=== PATIENT | male | born 1960 | race Caucasian/White ===

== ENCOUNTER → 2017-03-31 | Outpatient (CLI) | payer OTHER ==
[~2017-03-31] MED LIST: ALBUAER9 INH; AMLO5TAB4 PO; ATOR10TA88 PO; ATROPINE SULFATE 0.1 MG/ML 5ML SYR ONE; DOBUTamine HCL 12.5 MG/ML 20 ML VIAL ONE; INDA1TAB3 PO; IPRASOL4 INH; METFTAB2 PO; METO50TA16 PO; METOPROLOL TARTRATE 1 MG/ML VIAL ONE; MONT1TAB3 PO; OMEG10007 PO; OMEP40CA PO; OXGN; SYMIN INH; TRIA1SPR2 NAE
--- NOTE | 2017-03-31 11:11 | DIAGNOSTIC IMAGING REPORT ---
CHEST 2 VIEWS ROUTINE CLINICAL HISTORY: CHEST Pressure, difficulty BREATHING, HTN, MORBID OBESITY COMPARISON STUDY: 03/11/2015 FINDINGS: The bones soft tissues and hemidiaphragms are normal. The cardiomediastinal silhouette is normal. The lungs are clear. The pulmonary vasculature is normal. IMPRESSION: Negative chest. Electronically signed by: Carlos Gilliam M.D. 03/31/2017 11:09 AM Dictated Date/Time: 03/31/2017 11:09 AM
--- NOTE | 2017-04-01 18:00 | DOBUTAMINE ECHO ---
*NOTICE TO RECEIVING REPUBLICAN AGENCY This information is strictly Confidential and protected under [place] law. [place] law prohibits you from making any further disclosure of this information unless further disclosure is expressly permitted by the written consent of the person to whom it pertains or is authorized by law. A general authorization for the release of medical or other information is not sufficient for this purpose. Hospital accepts no responsibility if the information is made available to any other person, INCLUDING THE PATIENT. Interpretation Summary * Name: TRACY LAND Study Date: 03/31/2017 11:11 AM BP: 111/67 mmHg * Patient Location: [facility] HR: 67 * : 1960 (M/d/yyyy) Gender: Male Height: 69 in * Age: 56 yrs Ethnicity: [place] Weight: 317 lb * Ordering Physician: Ayse Womack * Referring Physician: Ayse Womack PA-C * Performed By: Samantha Koenig RDCS * * Reason For Study: Dyspnea on exertion * BSA: 2.5 m2 * -- Conclusions -- * Left ventricular systolic function is normal. * Grade I diastolic dysfunction, (abnormal relaxation pattern). * Borderline aortic root dilatation. * Normal dobutamine stress echocardiogram without development of ischemia. Procedure Details * DOBUTAMINE ECHO, CPT#28111 * ECHO DOPPLER, CPT #95822 * ECHO COLOR FLOW, CPT #47926 * A contrast injection of Definity was performed to improve assessment of LV function. * Contrast was injected into an intravenous site in the right arm. * One vial of Definity ultrasound contrast was diluted in normal saline to a total volume of 10 ml. A total of '6' ml of solution was administered during imaging. * Lot # [id number] of Definity utilized for procedure. * Expiration date MAY 13. * The attending nurse who injected the contrast agent was Alyssa Sinclair RN. Left Ventricular Findings with Stress * Normal dobutamine stress echocardiogram without development of ischemia. Left Ventricle * The left ventricle is normal in size. * There is normal left ventricular wall thickness. * Ejection Fraction = 60-65%. * Left ventricular systolic function is normal. * Grade I diastolic dysfunction, (abnormal relaxation pattern). * The left ventricular wall motion is normal. Right Ventricle * The right ventricle is normal in size and function. Atria * The left atrial size is normal. * Right atrial size is normal. Mitral Valve * The mitral valve anatomy is normal. * Significant mitral regurgitation is absent. Tricuspid Valve * The tricuspid valve is not well visualized, but is grossly normal. * Significant tricuspid regurgitation is absent. Aortic Valve * The aortic valve is normal in structure and function. * No hemodynamically significant valvular aortic stenosis. * There is no significant aortic regurgitation. Great Vessels * Borderline aortic root dilatation. Pericardium * There is no pericardial effusion. Stress Parameters * Normal baseline electrocardiogram. * The stress ECG response was normal * The stress portion of this study was personally supervised by the undersigned interpreting physician. * Rest heart rate was '67' BPM. * Rest blood pressure was '111/67' * Maximum heart rate achieved was 150 bpm. * Maximum heart rate was 90 % of maximum age-predicted heart rate. * Maximum blood pressure was '145/69' * Maximum Dobutamine infusion rate was '30' mcg/kg/min. * Dobutamine infusion was terminated due to achieving target heart rate * A total of 5 mg of IV Metoprolol was administered to reverse Dobutamine-induced tachycardia. * The patient did not exhibit any symptoms during drug infusion. Left Ventricular Findings with Stress * Normal baseline EKG at baseline. No ischemic changes with dobutamine administration. Normal baseline echocardiogram with normal augmentation and no development of wall motion abnormalities with dobutamine. No symptoms reported. MMode 2D Measurements and Calculations IVSd 0.97 cm LVIDd 3.7 cm LVIDs 2.6 cm LVPWd 1.4 cm IVS/LVPW 0.69 FS 29.6 % EDV(Teich) 57.4 ml ESV(Teich) 24.4 ml EF(Teich) 57.4 % EDV(cubed) 49.9 ml ESV(cubed) 17.4 ml EF(cubed) 65.1 % LV mass(C)d 144.4 grams LV mass(C)dI 57.5 grams/m\S\2 SV(Teich) 33.0 ml SI(Teich) 13.1 ml/m\S\2 SV(cubed) 32.4 ml SI(cubed) 12.9 ml/m\S\2 Ao root diam 4.0 cm Ao root area 12.5 cm\S\2 ACS 2.3 cm LA dimension 2.6 cm asc Aorta Diam 3.7 cm LA/Ao 0.66 LVOT diam 2.0 cm LVOT area 3.3 cm\S\2 LVAd ap4 33.9 cm\S\2 LVLd ap4 8.1 cm EDV(MOD-sp4) 115.0 ml EDV(sp4-el) 121.0 ml LVAs ap4 18.7 cm\S\2 LVLs ap4 6.6 cm ESV(MOD-sp4) 42.8 ml ESV(sp4-el) 45.1 ml EF(MOD-sp4) 62.8 % EF(sp4-el) 62.7 % LVAd ap2 31.1 cm\S\2 LVLd ap2 7.5 cm EDV(MOD-sp2) 105.6 ml EDV(sp2-el) 109.4 ml LVAs ap2 16.5 cm\S\2 LVLs ap2 6.0 cm ESV(MOD-sp2) 36.2 ml ESV(sp2-el) 38.4 ml EF(MOD-sp2) 65.8 % EF(sp2-el) 64.9 % LVLd %diff -70 % EDV(MOD-bp) 107.4 ml LVLs %diff -9.74 % ESV(MOD-bp) 40.6 ml EF(MOD-bp) 62.2 % SV(MOD-sp4) 72.2 ml SI(MOD-sp4) 28.7 ml/m\S\2 SV(MOD-sp2) 69.5 ml SI(MOD-sp2) 27.7 ml/m\S\2 SV(MOD-bp) 66.8 ml SI(MOD-bp) 26.6 ml/m\S\2 SV(sp4-el) 75.8 ml SI(sp4-el) 30.2 ml/m\S\2 SV(sp2-el) 71.0 ml SI(sp2-el) 28.2 ml/m\S\2 Doppler Measurements and Calculations MV E max gemini 57.7 cm/sec MV A max gemini 66.0 cm/sec MV E/A 0.88 MV dec time 0.26 sec Ao V2 max 97.1 cm/sec Ao max PG 3.8 mmHg Ao max PG (full) 0.48 mmHg ANITA(V,A) 3.1 cm\S\2 ANITA(V,D) 3.1 cm\S\2 LV V1 max PG 3.3 mmHg LV V1 max 90.7 cm/sec PA V2 max 93.7 cm/sec PA max PG 3.5 mmHg PA acc slope 766.7 cm/sec\S\2 PA acc time 0.08 sec PA pr(Accel) 42.6 mmHg
== END | disposition home or self-care (01) ==
LOC: C.CPL 10:41
PROVIDERS: ATTEND Physician Assistant
DX: R06.89 Other abnormalities of breathing (principal); R07.89 Other chest pain; E66.01 Morbid (severe) obesity due to excess calories; I10 Essential (primary) hypertension

== ENCOUNTER 2020-06-11 19:11 | Observation (INO) ==
[2020-06-11 19:52] LABS: Basophils # (auto) 0.03 K/uL (0-0.2); Basophils % (auto) 0.4 %; Eosinophils # (auto) 0.12 K/uL (0-0.5); Eosinophils % (auto) 1.7 %; Hematocrit (blood only) 43.4 % (42-52); Hemoglobin 14.5 g/dL (14.0-18.0); Immature Granulocytes # (auto) 0.01 K/uL (0.00-0.02); Immature Granulocytes % (auto) 0.1 %; Lymphocytes # (auto) 1.97 K/uL (1.2-3.4); Lymphocytes % (auto) 27.7 %; Mean Corpuscular Hemoglobin 28.6 pg (25-34); Mean Corpuscular Hgb Conc 33.4 g/dL (32-36); Mean Corpuscular Volume 85.6 fL (80-100); Mean Platelet Volume 10.9 fL (7.4-10.4); Monocytes # (auto) 0.61 K/uL (0.11-0.59); Monocytes % (auto) 8.6 %; Neutrophils # (auto) 4.37 K/uL (1.4-6.5); Neutrophils % (auto) 61.5 %; Platelet Count 328 K/uL (130-400); RDW Coefficient of Variation 14.6 % (11.5-14.5); RDW Standard Deviation 45.8 fL (36.4-46.3); Red Blood Count 5.07 M/uL (4.7-6.1); White Blood Count 7.11 K/uL (4.8-10.8)
[2020-06-11] MEDS ORDERED: SODIUM CHLORIDE 0.9% 1000ML 1,000 ML IV ONE (20:13)
[2020-06-11] MEDS ORDERED: SODIUM CHLORIDE 0.9% 1000ML 1,000 ML IV SCH ×2 (20:15→23:34)
[2020-06-11 20:16] LABS: Albumin Globulin Ratio 0.8 (0.9-2); Albumin Level 3.4 gm/dl (3.4-5.0); BUN Creatinine Ratio 16.8 (10-20); Bilirubin,Total 0.6 mg/dl (0.2-1); Creatinine Clr Calc Pharmacy 63.8 ml/min; Est GFR (African American) 48.3; Est GFR (Non-African American) 41.7; Globulin 4.5 gm/dl (2.5-4.0); Potassium 4.9 mmol/L (3.5-5.1); Total Protein 7.9 gm/dl (6.4-8.2)
[2020-06-11] MEDS ORDERED: INSULIN PROTOCOL GOAL RANGE ONE (20:21)
[2020-06-11] MEDS ORDERED: SEVERE STRESS LEVEL ONE (20:21)
[2020-06-11 20:27] LABS: INR 1.2 (0.9-1.1); Prothrombin Time 12.2 Seconds (9.0-12.0)
[2020-06-11 20:33] LABS: Magnesium 2.2 mg/dl (1.8-2.4)
--- NOTE | 2020-06-11 20:47 | Emergency Department Note ---
Impression & Plan Hyperglycemia, Dehydration, Polyuria, Increased thirst ED Provider Note NAME: TRACY LAND AGE: 59 SEX: M : 1960 ARRIVES VIA: Walk-In INFORMANT: Patient, ED PROVIDER(S): Jim Mondragon MD Chief Complaint: Increasing thirst, dry mouth, increased urination HPI: She does present with the above complaints and ongoing ongoing for several days. The patient was concerned and thus presented here for evaluation. The patient denies any chest pains or shortness of breath. The patient states he has been compliant with his medications and does wear CPAP at home. Patient states that he was told that he is prediabetic and does see outpatient pulmonology. It has not had any recent change in diet but believes he has been losing weight given his increased thirst and urination. The patient does feels that his mouth is dry. Patient's symptoms have been constant and have not improved even with by mouth hydration. Patient denies any nausea or vomiting or diarrheal symptoms. ROS: See HPI for pertinent positives and negatives. A total of 10 systems were reviewed and otherwise negative. Past medical history: See below Surgical history: See below Social history: See below Physical Exam: GENERAL: Wearing a mask. NAD, non-toxic. EYE EXAM: Normal conjunctiva. PERRL, no anisocoria and EOM's grossly intact w/o pain. NECK: Supple, no nuchal rigidity, no adenopathy, non-tender. No signs of meningismus. LUNGS: Clear to auscultation. Normal chest wall mechanics. HEART: NSR, no MRG. ABDOMEN: Abdomen soft, non-tender, normo-active bowel sounds, no masses, no rebound or guarding. BACK: No CVA TTP. SKIN: No rashes and no bruising. UPPER EXTREMITIES: Upper extremities are grossly normal. LOWER EXTREMITIES: Grossly normal, no edema. NEURO EXAM: A&O x3, cranial nerves II-XII grossly intact, normal speech, moves all 4 extremities on command w/o issue. Differential diagnoses: Infection, dehydration, metabolic abnormality, hypo/hyperglycemia, electrolyte disturbance, anemia, hypoxia, cardiac sources, intracerebral event, toxicologic, neurologic, as well as other pathologies. Course: Patient was seen and evaluated the bedside. Full history physical exam was performed. EKG: None Imaging Studies: None Cardiac monitoring: An order was placed for continuous cardiac monitoring. The monitor shows a rate of 93 with sinus rhythm. MDM: Patient was seen due to concern for elevated blood sugar in triage as well as symptoms of increased urination and thirst and dry mouth. Blood work is ob tained and the patient does have an elevated blood glucose greater than 900. The patient does not have an anion gap or low bicarb. Patient is not in DKA. Patient was given IV fluids and insulin drip was ordered. Patient's potassium was within normal limits. As per the on-call hospitalist Dr. Garcia patient was subsequently mated medicine service. Critical Care: I have personally spent 37 minutes of critical care time in direct management of this patient. This includes bedside care, interpretation of diagnostic studies, and testing, discussion with consultants, patient, and family members, and other require inpatient management activities. This 37 minutes is in excess of all separately billable procedures. Past Med/Surg History Medical History Calculus of kidney Cough Opioid dependence with unspecified opioid-induced disorder Pneumonia, organism unspecified Pulmonary nodule 4mm rml Restrictive pattern present on pulmonary function testing Severe sleep apnea Social History Smoking Status: Never smoker Hx Alcohol Use: No Hx Substance Use: No Preferred Language: Pakistani Communication Ability: Effective Fence Post Driver Required: No Beliefs That Will Affect Care: None Current Living Situation Comment: children Other Information That Helps Us Care for You: No Feels Safe at Home: Yes Safety Concerns: Feels Safe At This Time Allergies Allergies Allergy/AdvReac Type Severity Reaction Status Date / Time Tetracyclines Allergy Intermediate RASH/HIVES Verified 06/11/20 21:01 Home Meds Home Medications Medication Instructions Recorded Confirmed amlodipine 5 mg tablet 5 mg PO DAILY 05/18/19 06/11/20 atorvastatin 40 mg tablet 40 mg PO DAILY 05/18/19 06/11/20 cetirizine 10 mg tablet 10 mg PO DAILY 05/18/19 06/11/20 lisinopril 40 mg tablet 40 mg PO DAILY 05/18/19 06/11/20 montelukast 10 mg tablet 10 mg PO QPM 05/18/19 06/11/20 omega-3 fatty acids 1,000 mg 1,000 mg PO DAILY 05/18/19 06/11/20 capsule omeprazole 40 mg capsule,delayed 40 mg PO DAILY 05/18/19 06/11/20 release metoprolol succinate 100 mg 50 mg PO DAILY tab 05/21/19 06/11/20 tablet,extended release 24 hr triamcinolone acetonide 55 mcg 1 sprays INTNAS DAILY 05/21/19 06/11/20 nasal spray aerosol indapamide 2.5 mg PO DAILY 06/11/20 06/11/20 Previous Rx's Medication Instructions Recorded ipratropium bromide 0.02 % 1.25 ml INH .COMPLEX #150 ml 05/18/19 solution for inhalation levalbuterol HCl 0.63 mg/3 mL 0.63 mg INH .COMPLEX #150 ml 05/18/19 solution for nebulization albuterol sulfate 90 mcg/actuation 2 puffs INH Q6H PRN #18 gm 06/29/19 aerosol inhaler budesonide-formoterol HFA 160 2 inh INH BID #10.2 g 05/07/20 mcg-4.5 mcg/actuation aerosol inhaler Results & Data (ED) Vital Signs Vital Signs - 24 hr 06/11/20 19:20 06/11/20 20:27 06/11/20 20:31 Temperature 36.5 C Temperature Source Oral Pulse Rate 110 H 99 H Pulse Rate from SpO2 Sensor 98 H Respiratory Rate 18 30 H Respiratory Effort / Characteristics Non-Labored Respiratory Depth Normal Blood Pressure 115/73 Blood Pressure Mean 87 Pulse Oximetry 93 98 92 Oxygen Delivery Method Room Air Room Air Sepsis Recent Fever Within 48 Hours No Sepsis New/Unexplained Change in Mental Status No Sepsis Action Taken by Nursing No Action Required 06/11/20 20:40 06/11/20 20:50 06/11/20 21:00 Temperature Temperature Source Pulse Rate 94 H 94 H 91 H Pulse Rate from SpO2 Sensor 94 H 96 H 91 H Respiratory Rate 21 23 22 Respiratory Effort / Characteristics Respiratory Depth Blood Pressure 147/82 H Blood Pressure Mean 100 Pulse Oximetry 93 95 95 Oxygen Delivery Method Sepsis Recent Fever Within 48 Hours Sepsis New/Unexplained Change in Mental Status Sepsis Action Taken by Nursing 06/11/20 21:10 06/11/20 21:20 Temperature Temperature Source Pulse Rate 103 H Pulse Rate from SpO2 Sensor 102 H 95 H Respiratory Rate 22 23 Respiratory Effort / Characteristics Respiratory Depth Blood Pressure Blood Pressure Mean Pulse Oximetry 95 95 Oxygen Delivery Method Sepsis Recent Fever Within 48 Hours Sepsis New/Unexplained Change in Mental Status Sepsis Action Taken by Half-Way Medications Current Medication List: was personally reviewed by me Laboratory Data Attestation: I reviewed the patient's lab results. Result diagrams: 06/11/20 19:37 06/12/20 11:45 Lab Results 06/11/20 06/11/20 06/11/20 Range/Units 19:24 19:26 19:37 WBC 7.11 (4.8-10.8) K/uL RBC 5.07 (4.7-6.1) M/uL Hgb 14.5 (14.0-18.0) g/dL Hct 43.4 (42-52) % MCV 85.6 (80-100) fL MCH 28.6 (25-34) pg MCHC 33.4 (32-36) g/dL RDW Std Deviation 45.8 (36.4-46.3) fL RDW Coeff of Jake 14.6 H (11.5-14.5) % Plt Count 328 (130-400) K/uL MPV 10.9 H (7.4-10.4) fL Immature Gran % (Auto) 0.1 % Neut % (Auto) 61.5 % Lymph % (Auto) 27.7 % [place] % (Auto) 8.6 % Eos % (Auto) 1.7 % Baso % (Auto) 0.4 % Neut # (Auto) 4.37 (1.4-6.5) K/uL Lymph # (Auto) 1.97 (1.2-3.4) K/uL [place] # (Auto) 0.61 H (0.11-0.59) K/uL Eos # (Auto) 0.12 (0-0.5) K/uL Baso # (Auto) 0.03 (0-0.2) K/uL Immature Gran # (Auto) 0.01 (0.00-0.02) K/uL PT (9.0-12.0) Seconds INR (0.9-1.1) Sodium (136-145) mmol/L Potassium (3.5-5.1) mmol/L Chloride (98-107) mmol/L Carbon Dioxide (21-32) mmol/L Anion Gap (3-11) BUN (7-18) mg/dl Creatinine (0.6-1.4) mg/dl Est Cr Clr Drug Dosing ml/min Est GFR ( Amer) Est GFR (Non-Af Amer) BUN/Creatinine Ratio (10-20) Glucose (70-99) mg/dl POC Glucose > 600 H* > 600 H* (70-99) mg/dl Calcium (8.5-10.1) mg/dl Magnesium (1.8-2.4) mg/dl Total Bilirubin (0.2-1) mg/dl AST (15-37) U/L ALT (12-78) U/L Alkaline Phosphatase (45-117) U/L Total Protein (6.4-8.2) gm/dl Albumin (3.4-5.0) gm/dl Globulin (2.5-4.0) gm/dl Albumin/Globulin Ratio (0.9-2) Beta-Hydroxybutyric Acd (0.2-2.81) mg/dl TSH (0.300-4.500) uIu/ml Specimen Hemolysis 06/11/20 06/11/20 06/11/20 Range/Units 19:37 19:37 19:37 WBC (4.8-10.8) K/uL RBC (4.7-6.1) M/uL Hgb (14.0-18.0) g/dL Hct (42-52) % MCV (80-100) fL MCH (25-34) pg MCHC (32-36) g/dL RDW Std Deviation (36.4-46.3) fL RDW Coeff of Jake (11.5-14.5) % Plt Count (130-400) K/uL MPV (7.4-10.4) fL Immature Gran % (Auto) % Neut % (Auto) % Lymph % (Auto) % [place] % (Auto) % Eos % (Auto) % Baso % (Auto) % Neut # (Auto) (1.4-6.5) K/uL Lymph # (Auto) (1.2-3.4) K/uL [place] # (Auto) (0.11-0.59) K/uL Eos # (Auto) (0-0.5) K/uL Baso # (Auto) (0-0.2) K/uL Immature Gran # (Auto) (0.00-0.02) K/uL PT 12.2 H (9.0-12.0) Seconds INR 1.2 H (0.9-1.1) Sodium 124 L (136-145) mmol/L Potassium 4.9 (3.5-5.1) mmol/L Chloride 90 L (98-107) mmol/L Carbon Dioxide 23 (21-32) mmol/L Anion Gap 11.0 (3-11) BUN 30 H (7-18) mg/dl Creatinine 1.77 H (0.6-1.4) mg/dl Est Cr Clr Drug Dosing 63.8 ml/min Est GFR ( Amer) 48.3 Est GFR (Non-Af Amer) 41.7 BUN/Creatinine Ratio 16.8 (10-20) Glucose 913 H* (70-99) mg/dl POC Glucose (70-99) mg/dl Calcium 9.0 (8.5-10.1) mg/dl Magnesium 2.2 Cancelled (1.8-2.4) mg/dl Total Bilirubin 0.6 (0.2-1) mg/dl AST 58 H (15-37) U/L ALT 70 (12-78) U/L Alkaline Phosphatase 191 H (45-117) U/L Total Protein 7.9 (6.4-8.2) gm/dl Albumin 3.4 (3.4-5.0) gm/dl Globulin 4.5 H (2.5-4.0) gm/dl Albumin/Globulin Ratio 0.8 L (0.9-2) Beta-Hydroxybutyric Acd (0.2-2.81) mg/dl TSH 0.858 Cancelled (0.300-4.500) uIu/ml Specimen Hemolysis 06/11/20 06/11/20 Range/Units 20:50 20:50 WBC (4.8-10.8) K/uL RBC (4.7-6.1) M/uL Hgb (14.0-18.0) g/dL Hct (42-52) % MCV (80-100) fL MCH (25-34) pg MCHC (32-36) g/dL RDW Std Deviation (36.4-46.3) fL RDW Coeff of Jake (11.5-14.5) % Plt Count (130-400) K/uL MPV (7.4-10.4) fL Immature Gran % (Auto) % Neut % (Auto) % Lymph % (Auto) % [place] % (Auto) % Eos % (Auto) % Baso % (Auto) % Neut # (Auto) (1.4-6.5) K/uL Lymph # (Auto) (1.2-3.4) K/uL [place] # (Auto) (0.11-0.59) K/uL Eos # (Auto) (0-0.5) K/uL Baso # (Auto) (0-0.2) K/uL Immature Gran # (Auto) (0.00-0.02) K/uL PT (9.0-12.0) Seconds INR (0.9-1.1) Sodium (136-145) mmol/L Potassium (3.5-5.1) mmol/L Chloride (98-107) mmol/L Carbon Dioxide (21-32) mmol/L Anion Gap (3-11) BUN (7-18) mg/dl Creatinine (0.6-1.4) mg/dl Est Cr Clr Drug Dosing ml/min Est GFR ( Amer) Est GFR (Non-Af Amer) BUN/Creatinine Ratio (10-20) Glucose 783 H* (70-99) mg/dl POC Glucose > 600 H* (70-99) mg/dl Calcium (8.5-10.1) mg/dl Magnesium (1.8-2.4) mg/dl Total Bilirubin (0.2-1) mg/dl AST (15-37) U/L ALT (12-78) U/L Alkaline Phosphatase (45-117) U/L Total Protein (6.4-8.2) gm/dl Albumin (3.4-5.0) gm/dl Globulin (2.5-4.0) gm/dl Albumin/Globulin Ratio (0.9-2) Beta-Hydroxybutyric Acd (0.2-2.81) mg/dl TSH (0.300-4.500) uIu/ml Specimen Hemolysis Administered Medications Amlodipine Besylate (Amlodipine Besylate 5 Mg Tab) 5 mg PO DAILY GEORGE Stop: 07/12/20 08:59 Last Admin: 06/12/20 07:50 Dose: 5 mg Documented by: [id number] Atorvastatin Calcium (Atorvastatin 40 Mg Tab) 40 mg PO DAILY [facility] Stop: 07/12/20 08:59 Last Admin: 06/12/20 07:45 Dose: 40 mg Documented by: [id number] Cetirizine HCl (Cetirizine Hcl 10 Mg Tablet) 10 mg PO DAILY GEORGE Stop: 07/12/20 08:59 Last Admin: 06/12/20 07:47 Dose: 10 mg Documented by: [id number] Enoxaparin Sodium (Enoxaparin Inj 40 Mg/0.4 Ml Syr) 40 mg SQ Q12H GEORGE Stop: 07/12/20 08:59 Last Admin: 06/12/20 07:45 Dose: 40 mg Documented by: [id number] Fluticasone/Vilanterol (Fluticasone/Vilanterol 100/25mcg 14 Puffs/Inhaler) 1 puffs INH DAILY GEORGE Stop: 07/12/20 08:59 Last Admin: 06/12/20 07:46 Dose: 1 puffs Documented by: [id number] Insulin Human Regular 250 (units/ Sodium Chloride) 250 mls @ 2.7 mls/hr IV .Q24H GEORGE; Protocol Stop: 07/11/20 20:29 Last Titration: 06/12/20 13:57 Dose: 2.7 units/hr, 2.7 mls/hr Documented by: [id number] Cosigned by: [id number] Titration: 06/12/20 12:26 Dose: 3.4 units/hr, 3.4 mls/hr Documented by: [id number] Cosigned by: [id number] Titration: 06/12/20 09:51 Dose: 4.3 units/hr, 4.3 mls/hr Documented by: [id number] Cosigned by: [id number] Titration: 06/12/20 09:02 Dose: 3.1 units/hr, 3.1 mls/hr Documented by: [id number] Cosigned by: [id number] Titration: 06/12/20 06:46 Dose: 2.6 units/hr, 2.6 mls/hr Documented by: [id number] Cosigned by: [id number] Titration: 06/12/20 04:55 Dose: 2.6 units/hr, 2.6 mls/hr Documented by: [id number] Cosigned by: [id number] Titration: 06/12/20 02:53 Dose: 2.6 units/hr, 2.6 mls/hr Documented by: [id number] Cosigned by: [id number] Titration: 06/12/20 01:50 Dose: 2.6 units/hr, 2.6 mls/hr Documented by: [id number] Cosigned by: [id number] Titration: 06/12/20 00:49 Dose: 3.3 units/hr, 3.3 mls/hr Documented by: [id number] Cosigned by: [id number] Titration: 06/11/20 23:48 Dose: 4.1 units/hr, 4.1 mls/hr Documented by: [id number] Cosigned by: [id number] Titration: 06/11/20 22:55 Dose: 4.1 units/hr, 4.1 mls/hr Documented by: [id number] Cosigned by: [id number] Admin: 06/11/20 21:39 Dose: 5.1 units/hr, 5.1 mls/hr Documented by: [id number] Cosigned by: [id number] Potassium Chloride/Sodium Chloride (1/2 Nss + 20meq Kcl 1000ml) 20 meq in 1,000 mls @ 150 mls/hr IV .Q6H40M [facility] Stop: 07/12/20 10:14 Last Admin: 06/12/20 10:22 Dose: 150 mls/hr Documented by: [id number] Indapamide (Indapamide 1.25 Mg Tab) 2.5 mg PO DAILY [facility] Stop: 07/12/20 08:59 Last Admin: 06/12/20 07:49 Dose: 2.5 mg Documented by: [id number] Insulin Aspart (Insulin Aspart 100 Units/Ml 3 Ml Pen) 0 units SC [facility]; Protocol Stop: 07/12/20 07:29 Last Admin: 06/12/20 12:01 Dose: 13 units Documented by: [id number] Cosigned by: [id number] Admin: 06/12/20 08:19 Dose: 5 units Documented by: [id number] Cosigned by: [id number] Lisinopril (Lisinopril 40 Mg Tab) 40 mg PO DAILY [facility] Stop: 07/12/20 08:59 Last Admin: 06/12/20 07:49 Dose: 40 mg Documented by: [id number] Metoprolol Succinate (Metoprolol Succ 50mg Ext Rel Tab) 50 mg PO DAILY GEORGE Stop: 07/12/20 08:59 Last Admin: 06/12/20 07:49 Dose: 50 mg Documented by: [id number] Pantoprazole Sodium (Pantoprazole 40 Mg Tab) 40 mg PO DAILY [facility] Stop: 07/12/20 08:59 Last Admin: 06/12/20 07:47 Dose: 40 mg Documented by: [id number] Triamcinolone Acetonide (Triamcinolone Acet Nasal [place] 10.8ml Btl) 1 sprays NA DAILY GEORGE Stop: 07/12/20 08:59 Last Admin: 06/12/20 07:46 Dose: 1 sprays Documented by: [id number] Discontinued Medications Sodium Chloride (Nss 1000ml) 1,000 mls @ 999 mls/hr IV .Q1H1M GEORGE Stop: 06/11/20 21:15 Last Infusion: 06/11/20 21:41 Dose: 0 mls/hr Documented by: [id number] Admin: 06/11/20 20:28 Dose: 999 mls/hr Documented by: [id number] Sodium Chloride (Nss 1000ml) 1,000 mls @ 999 mls/hr IV .Q1H1M ONE Stop: 06/11/20 21:13 Last Infusion: 06/11/20 22:51 Dose: 0 mls/hr Documented by: [id number] Admin: 06/11/20 21:16 Dose: 999 mls/hr Documented by: [id number] Sodium Chloride (Nss 1000ml) 1,000 mls @ 200 mls/hr IV .Q5H GEORGE Stop: 07/11/20 23:33 Last Admin: 06/12/20 01:04 Dose: Not Given Documented by: [id number] Potassium Chloride/Sodium Chloride (1/2 Nss + 20meq Kcl 1000ml) 20 meq in 1,000 mls @ 200 mls/hr IV .Q5H GEORGE Stop: 07/12/20 00:44 Last Infusion: 06/12/20 02:01 Dose: 0 mls/hr Documented by: [id number] Admin: 06/12/20 01:40 Dose: 200 mls/hr Documented by: [id number] Potassium Chloride/Dextrose/Sod Cl (D5w And 1/2nss + 20meq Kcl) 20 meq in 1,000 mls @ 150 mls/hr IV .Q6H40M [facility]ORGE Stop: 07/12/20 01:59 Last Infusion: 06/12/20 10:04 Dose: 0 mls/hr Documented by: [id number] Admin: 06/12/20 07:42 Dose: 150 mls/hr Documented by: [id number] Infusion: 06/12/20 07:42 Dose: 150 mls/hr Documented by: [id number] Infusion: 06/12/20 04:35 Dose: 150 mls/hr Documented by: [id number] Admin: 06/12/20 02:00 Dose: 200 mls/hr Documented by: [id number] Potassium Chloride (K [place] / Wtr) 10 meq in 100 mls @ 100 mls/hr IV Q1H [facility] Stop: 06/12/20 10:44 Last Infusion: 06/12/20 10:52 Dose: 0 mls/hr Documented by: [id number] Admin: 06/12/20 09:47 Dose: 100 mls/hr Documented by: [id number] Infusion: 06/12/20 09:47 Dose: 100 mls/hr Documented by: [id number] Admin: 06/12/20 08:55 Dose: 100 mls/hr Documented by: [id number] Insulin Aspart (Insulin Aspart 100 Units/Ml 3 Ml Pen) 0 units SC ACHS [facility] Stop: 07/11/20 20:59 Last Admin: 06/12/20 00:05 Dose: Not Given Documented by: [id number] Cosigned by: [id number] Insulin Glargine (Insulin Glargine Solostar 100 Units/Ml 3 Ml Pen) 50 units SC ONE ONE Stop: 06/12/20 10:31 Last Admin: 06/12/20 10:54 Dose: 50 units Documented by: [id number] Cosigned by: [id number] Insulin Human Regular (Novolin-R Bolus From Bag) 5 units IV ONE ONE Stop: 06/11/20 21:16 Last Admin: 06/11/20 21:39 Dose: 5 units Documented by: [id number] Cosigned by: [id number] Miscellaneous (Insulin Protocol Goal Range ) 1 ea N/A ONE ONE Stop: 06/11/20 20:22 Last Admin: 06/12/20 00:04 Dose: Not Given Documented by: [id number] Miscellaneous (Severe Stress Level ) 1 ea N/A ONE ONE Stop: 06/11/20 20:22 Last Admin: 06/12/20 00:05 Dose: Not Given Documented by: [id number] Miscellaneous (Pending 1/2nss+20meq Kcl Ivf) 1 ea N/A Q2H GEORGE Stop: 07/11/20 23:33 Last Admin: 06/12/20 01:04 Dose: Not Given Documented by: [id number] Miscellaneous (Pending D5 1/2ns+20meq Kcl Ivf) 1 ea N/A Q2H GEORGE Stop: 07/11/20 23:33 Last Admin: 06/12/20 01:35 Dose: Not Given Documented by: [id number] Admin: 06/12/20 00:53 Dose: Not Given Documented by: [id number] Discharge Plan Visit Data Chief Complaint: Hyperglycemia Stated Complaint: NO ENERGY, MOUTH DRY ED Provider: Jim Mondragon Discharge Problem: Hyperglycemia, Dehydration, Polyuria, Increased thirst Patient Disposition: Admitted As Inpatient Discharge Instructions Interventions: ED Discharge Assessment Last Done: 06/11/20 23:08
[2020-06-11 20:50] LABS: Thyroid Stimulating Hormone 0.858 uIu/ml (0.300-4.500)
[2020-06-11] MEDS ORDERED: INSULIN ASPART 100 UNITS/ML 3 ML PEN SC SCH (21:00)
[2020-06-11] MEDS ORDERED: NovoLIN-R BOLUS FROM BAG IV ONE (21:15)
[2020-06-11 21:22] LABS: Glucose 783 mg/dl (70-99)
[2020-06-11] MEDS: INSULIN REGULAR 250 UNITS in SODIUM CHLORIDE 0.9% 247.5 ML IV SCH (21:39)
[2020-06-11 22:03] LABS: Appearance Urine Clear (Clear); Bacteria Urine Automated Negative (Negative); Bilirubin Urine Negative (Negative); Blood Urine Negative (Negative); Cast Urine Automated 0 /lpf (0-5); Color Urine Yellow; Epithelial Cell Urine Auto 20-30 /lpf (0-5); Glucose Urine UA 3+ (Negative); Ketones Urine Negative (Negative); Leukocyte Esterase Urine Trace (Negative); Nitrite Urine Negative (Negative); Protein Urine Negative (Negative); RBC Urine Automated 0-4 /hpf (0-4); Specific Gravity Urine 1.035 (1.000-1.030); Urobilinogen Urine Negative (Negative); pH Urine 5.5 (4.5-7.5)
--- NOTE | 2020-06-11 23:33 | History and Physical Report ---
DATE OF ADMISSION: 06/11/2020 CHIEF COMPLAINT: Hyperglycemia. HISTORY OF PRESENT ILLNESS: This is a 59-year-old male with past medical history significant for asthma, mild persistent mixed rhinitis, obstructive sleep apnea, nocturnal hypoxemia, hypertension, gastritis and gastroduodenitis, obesity, migraine variant, family history of premature CAD, recent dobutamine stress echo in March was negative study, hyperlipidemia, history of type 2 diabetes. As per [facility], he was started on semaglutide, but the patient says he did not started on any medications yet, comes here because of last several days he is having increased frequency of urination and also is very thirsty. He is drinking a lot of water, ice tea, but says still feeling thirsty. Denies any weakness. No nausea, no vomiting, no abdominal pain. Denies any dizziness, but complains of blurred visions and in last 3 days, he did not have much taste and didn't eat much. No loss of sense of smell. No cough, no fever, no chills. No exposure to any COVID patients. Denies any earache, no runny nose. He has headache earlier that is resolved now. He says he is always short of breath because of his asthma, it is more when walking up hills. No diarrhea or constipation. No blood in the stool or black stools. No hematuria. No swelling, no rash. Currently resting comfortably and hemodynamically stable. ALLERGIES: TETRACYCLINE. PAST MEDICAL HISTORY: As mentioned above. PAST SURGICAL HISTORY: Dental surgery, EGD with biopsy, removal of kidney stone. MEDICATIONS: The patient is on albuterol 2 puffs inhalation q. 6 hours p.r.n., amlodipine 5 mg p.o. daily, atorvastatin 40 mg p.o. daily, Symbicort 160/4.5 two puffs inhalation b.i.d., cetirizine 10 mg p.o. daily, indapamide 2.5 mg p.o. daily, ipratropium bromide and levalbuterol inhalation 0.63 mg inhalation q. 4-6 hours p.r.n., lisinopril 40 mg p.o. daily, Toprol-XL 50 mg p.o. daily, montelukast 10 mg p.o. p.m., omega 3 fatty acid 1000 mg p.o. daily, omeprazole 40 mg p.o. daily, Nasacort 1 spray intranasal daily. FAMILY HISTORY: Significant for father had black lung. Mother had hypertension, blood clot, thyroid disorder. Sister has allergies, thyroid disorder, stroke. Maternal grandmother had cancer. Paternal grandmother had diabetes. SOCIAL HISTORY: . No smoking. No alcohol use, no drug use. REVIEW OF SYMPTOMS: As per HPI. Rest of the symptoms negative. PHYSICAL EXAMINATION: GENERAL: The patient is obese, not in acute distress. VITAL SIGNS: Temperature 36.5, pulse 103, respiratory rate 22, blood pressure 147/82, oxygen 95% on room air. HEENT: Pupils equal, round and reactive to light. Oral mucosa dry. NECK: No JVD, no neck masses, no carotid bruits. CARDIOVASCULAR SYSTEM: S1, S2 heard. Regular rate and rhythm. No murmur, no gallop. RESPIRATORY SYSTEM: Normal AP diameter. No accessory muscle use. No wheezing, no crackles. ABDOMEN: Soft, bowel sounds present, nontender. No distention. CENTRAL NERVOUS SYSTEM: Cranial nerves II-XII grossly intact. Nonfocal. EXTREMITIES: No edema, no erythema. LABORATORY DATA: WBC 7.1, hemoglobin 14.5, hematocrit 43.4, platelets 328. PT 12.2, INR 1.2. Sodium 124, potassium 4.9, chloride 90, bicarb 23, BUN 30, creatinine 1.77, serum glucose 739, calcium 9, magnesium 2.2. Total bilirubin 0.6, AST 58, ALT 70, alkaline phosphatase 191. TSH 0.5. EKG: Normal sinus rhythm, rate of 96, no significant change was found. ASSESSMENT AND PLAN: This is a 59-year-old male who presents due to hyperglycemia. 1. Hyperglycemia. His HbA1c was 7.9 in 03/2020, supposed to be starting on medications, but he states not started yet, came due to increased urination and feeling thirsty. Found to have elevated blood sugars but the patient is not in DKA. The patient is alert and oriented. The patient was started on insulin protocol in the ER, which we will continue with [facility] protocol. Consult pharmacy and diabetic education. We will follow HbA1c level and HbA1c greater than 9, will be discharged on insulin and close followup with PCP. Aggressive fluids as per protocol. 2. Pseudohyponatremia. Presented with NA 124. Corrected sodium 137. Secondary to hyperglycemia. We will follow the frequent labs. 3. Acute kidney injury. Baseline creatinine 1.1, current creatinine 1.7 secondary to getting fluids. Follow the labs in a.m. 4. Obstructive sleep apnea. CPAP at bedtime with oxygen 3 liters. 5. Obesity, need counseling. 6. Hypertension. Continue his home medications of amlodipine, metoprolol, indapamide, lisinopril. We will monitor his blood pressure. 7. History of asthma. Continue his home medications and inhalers, currently seems stable. 8. History of gastritis. Continue his omeprazole. 9. Deep venous thrombosis prophylaxis. Lovenox. DISPOSITION: Admit to med tele. Expect discharge home and follow with family doctor. Level 1 full code. MTDD
[2020-06-11] MEDS ORDERED: ACETAMINOPHEN 325 MG TAB PO PRN (23:34)
[2020-06-11] MEDS ORDERED: HHS GOAL RANGE 250-350 mg/dl ONE (23:34)
[2020-06-11] MEDS ORDERED: ONDANSETRON INJ 2 MG/ML 2 ML VIAL IV PRN (23:34)
[2020-06-11] MEDS ORDERED: PENDING 1/2NSS+20mEq KCL IVF SCH (23:34)
[2020-06-11] MEDS ORDERED: LEVALBUTEROL HCL 0.63 MG/3 ML NEB INH PRN (23:34)
[2020-06-11] MEDS ORDERED: IPRATROPIUM BROMIDE NEB SOLN 0.02% 2.5 ML VIAL INH PRN (23:34)
[2020-06-11] MEDS ORDERED: ALBUTEROL HFA 8 GM INHALER INH PRN (23:34)
[2020-06-11] MEDS ORDERED: INSULIN REGULAR 250 UNITS in SODIUM CHLORIDE 0.9% 247.5 ML IV SCH (23:34)
[2020-06-11] MEDS ORDERED: NITROGLYCERIN SL 0.4 MG/TAB TAB SL PRN (23:34)
[2020-06-12] MEDS ORDERED: PHARMACY GLYCEMIC MGMT CONSULT PRN (00:05)
[2020-06-12 00:40] LABS: BUN Creatinine Ratio 18.8 (10-20); Calcium 9.5 mg/dl (8.5-10.1); Creatinine Clr Calc Pharmacy 79.6 ml/min; Est GFR (African American) 63.6; Est GFR (Non-African American) 54.9; Magnesium 2.2 mg/dl (1.8-2.4); Phosphorus 2.3 mg/dl (2.5-4.9)
[2020-06-12 00:41] LABS: Potassium 4.1 mmol/L (3.5-5.1)
[2020-06-12] MEDS ORDERED: SODIUM CHLOR 0.45% + 20MEQ KCL 20 MEQ/1,000 ML BAG IV SCH (00:45)
[2020-06-12] MEDS: PENDING D5 1/2NS+20mEq KCL IVF SCH ×2 (00:53→01:35)
[2020-06-12] MEDS: D5W AND 1/2NSS + 20MEQ KCL 20 MEQ/1,000 ML BAG IV SCH ×2 (02:00→07:42)
[2020-06-12 04:36] LABS: BUN Creatinine Ratio 19.2 (10-20); Calcium 8.6 mg/dl (8.5-10.1); Creatinine Clr Calc Pharmacy 93.5 ml/min; Est GFR (African American) 77.3; Est GFR (Non-African American) 66.7; Magnesium 2.2 mg/dl (1.8-2.4); Phosphorus 3.2 mg/dl (2.5-4.9); Potassium 3.7 mmol/L (3.5-5.1)
[2020-06-12 04:49] LABS: Beta-Hydroxybutyrate 3.01 mg/dl (0.2-2.81)
[2020-06-12 05:46] LABS: Estimated Average Glucose 358 mg/dl; Hemoglobin A1C 14.1 % (4.5-5.6)
[2020-06-12 06:59] LABS: BUN Creatinine Ratio 17.5 (10-20); Calcium 8.6 mg/dl (8.5-10.1); Creatinine Clr Calc Pharmacy 91.1 ml/min; Est GFR (African American) 75.1; Est GFR (Non-African American) 64.8; Phosphorus 3.2 mg/dl (2.5-4.9)
[2020-06-12] MEDS: ENOXAPARIN INJ 40 MG/0.4 ML SYR SQ SCH ×2 (07:45→21:51)
[2020-06-12] MEDS: ATORVASTATIN 40 MG TAB PO SCH (07:45)
[2020-06-12] MEDS: TRIAMCINOLONE ACET NASAL SPRAY 10.8ML BTL SCH (07:46)
[2020-06-12] MEDS: FLUTICASONE/VILANTEROL 100/25MCG 14 PUFFS/INHALER INH SCH (07:46)
[2020-06-12] MEDS: CETIRIZINE HCL 10 MG TABLET PO SCH (07:47)
[2020-06-12] MEDS: PANTOprazole 40 MG TAB PO SCH (07:47)
[2020-06-12] MEDS: METOPROLOL SUCC 50MG EXT REL TAB PO SCH (07:49)
[2020-06-12] MEDS: INDAPAMIDE 1.25 MG TAB PO SCH (07:49)
[2020-06-12] MEDS: lisinopriL 40 MG TAB PO SCH (07:49)
[2020-06-12] MEDS: AMLODIPINE BESYLATE 5 MG TAB PO SCH (07:50)
[2020-06-12 07:53] LABS: Potassium 3.6 mmol/L (3.5-5.1)
[2020-06-12] MEDS: INSULIN ASPART 100 UNITS/ML 3 ML PEN SC SCH ×4 (08:19→21:51)
[2020-06-12] MEDS: POTASSIUM CHLORIDE / WTR 10 MEQ/100 ML PLCT IV SCH ×2 (08:55→09:47)
[2020-06-12] MEDS: SODIUM CHLOR 0.45% + 20MEQ KCL 20 MEQ/1,000 ML BAG IV SCH ×3 (10:22→23:17)
[2020-06-12] MEDS ORDERED: INSULIN GLARGINE SOLOSTAR 100 UNITS/ML 3 ML PEN SC ONE ×2 (10:30→20:00)
--- NOTE | 2020-06-12 11:12 | Pharmacy Report ---
Glycemic Control Consultation - Date of Service June 12, 2020 - Scope Scope: Glycemic Pharmacist consulted for glycemic control and to write orders per [facility] inpatient glycemic control protocol. - Objective Weight: 137 kg Accrussellecks BSG (last 24hrs): 06/11/20 06/11/20 06/11/20 19:24 19:26 19:37 Glucose 913 H* POC Glucose > 600 H* > 600 H* 06/11/20 06/11/20 06/11/20 20:50 20:50 22:48 Glucose 783 H* POC Glucose > 600 H* 522 H* 06/11/20 06/11/20 06/12/20 23:46 23:52 00:45 Glucose 424 H* POC Glucose 466 H* 363 H* 06/12/20 06/12/20 06/12/20 01:46 02:51 03:42 Glucose POC Glucose 304 H* 313 H* 337 H* 06/12/20 06/12/20 06/12/20 03:50 03:51 04:52 Glucose 320 H* POC Glucose 410 H* 294 H 06/12/20 06/12/20 06/12/20 06:01 06:44 07:28 Glucose 303 H* POC Glucose 307 H* 308 H* 06/12/20 06/12/20 06/12/20 08:53 09:49 10:51 Glucose POC Glucose 330 H* 412 H* 345 H* Laboratory Data (last 24hrs): 06/11/20 06/11/20 06/11/20 19:37 20:50 23:52 Potassium 4.9 4.1 D Carbon Dioxide 23 26 Anion Gap 11.0 6.0 Creatinine 1.77 H 1.41 H D Est Cr Clr Drug Dosing 63.8 79.6 Beta-Hydroxybutyric Acd 06/12/20 06/12/20 06/12/20 03:50 06:01 07:21 Potassium 3.7 3.6 Carbon Dioxide 29 29 Anion Gap 4.0 6.0 Creatinine 1.20 1.23 Est Cr Clr Drug Dosing 93.5 91.1 Beta-Hydroxybutyric Acd 3.01 H 1.00 HbA1c: Hemoglobin A1c 14.1 % (4.5-5.6) H 06/12/20 03:51 - Recent Pertinent Medications Outpatient Anti-diabetic Regimen: * None * A1c = 14.1% (06/12/2020) The patient is currently receiving: * Continue Insulin Infusion running at 4.3 units/hr * Goal Range: 150 - 250 mg/dL Risk Factors for Insulin Resistance: * IVF: * 1/2 NS + 20 KCl @ 150 cc/hr * Diet: * T2DM - Assessment & Plan Assessment & Plan: ASSESSMENT: * 59 yo M admitted secondary to polyuria and polydipsia. Pharmacy is consulted for inpatient glycemic management. * Patient was previously on Steglatro 5 mg PO daily + Metformin ER 1500 mg PO daily until August 2019. Then patient was transitioned to the combination of these two medications called Segluromet 7.5-1000 mg PO BIDM in September 2019. Most recent HbA1c prior to this admission was 7.9% in March 2020. At this time, patient reports his insurance stopped covering Segluromet so he has not taken any anti-diabetic medications since March 2020. HbA1c today was almost doubled to 14.1% in only two months. * Admission BSG was > 900 mg/dL. There was no acidosis. These was deemed HHS despite patient being mentally alert and without significant increase in serum osmolality. Patient was given a 5 unit IV insulin bolus followed by continuous insulin infusion started at 5.1 units/hr with a goal range of 250-350 mg/dL. BSGs trended downward overnight and at ~ 0500 this morning, patient's BSG was 294 mg/dL. At this time Dextrose was added to his fluids. Since this time BSGs have trended upwards despite tightening goal range to 150-250. * I am not concerned about decreasing this patient's BSG too fast at this point as he is not obtunded and Serum Osmolality is being monitored and does not demonstrate any significant fluid shifts. * I tightened the insulin drip goal ranged to 150-250 mg/dL this morning. Patient's K+ was 3.6 this AM so I spoke with attending who agree to 2 K- riders. I have switched fluids to 1/2 NS + 20 KCl at 150 mL/hr. Patient will be given 50 units of basal insulin this morning (0.36 units/kg; weight/stress 3 full dose per Adj.BW). Since the patient is ordered a diet, I will start a fixed carbohydrate ratio of 1 unit of insulin for every 5 gm of CHO. I expect patient's BSGs to start trending downward prior to lunch given removal of dextrose from fluids, tighter goal range, and Lantus dose. * Plan is to continue insulin drip for now until both of the following criteria are met: * Insulin drip running at 1 unit/hr or less AND 2 consecutive BSGs are 180 mg/dL or less * Most recent BSG was 246 mg/dL at 1351 and insulin gtt is running at 2.7 units/hr PLAN FOR INPATIENT GLYCEMIC CONTROL: * Continue IV insulin infusion per severe stress protocol * Goal Range 150 - 250 mg/dl * Basal insulin * Lantus 50 units SQ x 1 * Bolus insulin * NovoLog per scale ACHS or Q6hrs while NPO * FIXED Nutritional / Prandial insulin per carb ratio of 1 unit per 5 grams CHO consumed * Please note that the plan above was derived based on current level of insulin resistance and hospital stress. These recommendations are appropriate for inpatient admission only. Plan of care upon discharge will need to be reassessed to avoid potential outpatient hypo/hyperglycemia. Thank you.
[2020-06-12 12:19] LABS: BUN Creatinine Ratio 17.3 (10-20); Calcium 8.6 mg/dl (8.5-10.1); Creatinine Clr Calc Pharmacy 99.2 ml/min; Est GFR (African American) 83.2; Est GFR (Non-African American) 71.8; Potassium 3.7 mmol/L (3.5-5.1)
[2020-06-12] MEDS ORDERED: GLUCOSE 40% GEL 15 GM TUBE PO PRN (14:15)
[2020-06-12] MEDS ORDERED: DEXTROSE 50% 50 ML SYRINGE IV PRN (14:15)
[2020-06-12] MEDS ORDERED: CARBOHYDRATES FOR HYPOGLYCEMIA PO PRN (14:15)
[2020-06-12] MEDS ORDERED: GLUCAGON FOR INJ 1 MG VIAL IM PRN (14:15)
[2020-06-12] MEDS ORDERED: GLUCOSE 10 TABS/TUBE PO PRN (14:15)
--- NOTE | 2020-06-12 15:55 | Hospitalist Progress Note ---
Date of Service June 12, 2020 Assessment & Plan (1) Hyperosmolar non-ketotic state in patient with type 2 diabetes mellitus: Admitted with blood sugar more than 900, Nonketotic/ NECK: Supple, nontender, no lymphadenopathy. Anion gap, normal beta hydroxybutyrate Hemoglobin A1c 14.1 Patient started with IV insulin drip, appreciate input from pharmacy extension educator consulted Patient will need to be on insulin on discharge as well Needs follow-up with diabetic clinic at [facility] (2) Hyperglycemia: Due to poorly controlled type 2 diabetes On insulin drip currently, Change to monitor electrolytes per diabetic protocol and replace accordingly (3) Increased thirst: Due to severe dehydration, hyperglycemia, uncontrolled type 2 diabetes Symptoms has resolved, Patient is continued on IV insulin drip (4) Dyslipidemia: On statin (5) Morbid obesity: BMI 45, patient given instruction for weight reduction lifestyle modification, dietary change, for diabetic management (6) Obstructive sleep apnea (adult) (pediatric): CPAP at night (7) Acute renal insufficiency: Presented with acute renal failure, elevated creatinine is secondary to dehydration, poorly controlled type 2 diabetes Renal function improved to baseline, Continue to monitor BMP DVT prophylaxis, moderate to high risk secondary to morbid obesity, subcu Lovenox ordered Disposition: Expected to be discharged home when medically stable Patient follows with Dr. Garcia Admission and Anticipated Discharge Date Admission Date: June 11, 2020 Subjective Patient reports he feels a bit better than yesterday, increased thirst, urination is improved Still have generalized weakness fatigue Develop headache since with known No shortness of breath no cough no dyspnea on exertion Denies of any weakness or paresthesia Review of Systems Review of Systems: All systems reviewed & are unremarkable except as noted in HPI & below Physical Exam Constitutional: WD/WN, vitals as above + obese; no acute distress Eyes: PERRL, conjunctivae normal, anicteric sclerae ENMT: external ear and nose normal, oropharynx normal Neck: trachea midline, no thyromegaly Respiratory: no respiratory distress and no cough Auscultation: no crackles, no rales, no rhonchi and no wheezes Cardiovascular: RRR, no murmur, no edema Gastrointestinal (Abdomen): Inspection/Auscultation: + abdomen distended Percussion/Palpation: abdomen soft; abdomen nontender Musculoskeletal: no cyanosis or clubbing, extremities motor strength 5/5 Skin: no rashes, warm and dry Neurologic: PERRL, EOMI, accommodation nl, no face palsy, no dysarthria Psychiatric: A+Ox3, euthymic affect Results & Data Results & Data ([facility]) Vital Signs (Past 12 Hours) Vital Signs Temp Pulse Pulse Resp BP Pulse Ox 06/12/20 15:07 36.8 C 79 12 122/74 92 06/12/20 11:12 36.8 C 87 18 103/67 93 06/12/20 08:00 74 06/12/20 07:53 81 119/82 06/12/20 07:02 36.8 C 74 16 94/64 L 96 06/12/20 03:57 36.7 C 80 20 96/62 L 94
[2020-06-12 16:03] LABS: BUN Creatinine Ratio 15.7 (10-20); Calcium 8.5 mg/dl (8.5-10.1); Creatinine Clr Calc Pharmacy 94.2 ml/min; Est GFR (African American) 78.1; Est GFR (Non-African American) 67.4; Magnesium 2.1 mg/dl (1.8-2.4); Phosphorus 1.8 mg/dl (2.5-4.9); Potassium 3.9 mmol/L (3.5-5.1)
[2020-06-12] MEDS ORDERED: POTASSIUM PHOSPHATE 15 MMOL in SODIUM CHLORIDE 0.9% 250 ML IV ONE (16:15)
--- NOTE | 2020-06-12 19:56 | Electrocardiogram Report ---
Test Reason : Blood Pressure : / mmHG Vent. Rate : 096 BPM Atrial Rate : 096 BPM P-R Int : 164 ms QRS Dur : 090 ms QT Int : 338 ms P-R-T Axes : 038 023 015 degrees QTc Int : 427 ms Normal sinus rhythm Low voltage QRS Borderline ECG When compared with ECG of 19-FEB-2009 21:55, No significant change was found Confirmed by Reji Morelos ([id number]) on 06/12/2020 7:55:55 PM Referred By: REFERRED SELF Confirmed By:Reji Morelos
[2020-06-12 20:23] LABS: BUN Creatinine Ratio 14.1 (10-20); Calcium 8.5 mg/dl (8.5-10.1); Creatinine Clr Calc Pharmacy 81.2 ml/min; Est GFR (African American) 65.3; Est GFR (Non-African American) 56.4; Magnesium 1.8 mg/dl (1.8-2.4); Potassium 3.8 mmol/L (3.5-5.1)
[2020-06-12 20:25] LABS: Phosphorus 2.6 mg/dl (2.5-4.9)
[2020-06-12] MEDS ORDERED: INSULIN PROTOCOL GOAL RANGE ONE (20:30)
[2020-06-12] MEDS: INSULIN REGULAR 250 UNITS in SODIUM CHLORIDE 0.9% 247.5 ML IV SCH (21:47)
[2020-06-12] MEDS: MONTELUKAST SODIUM 10 MG TABLET PO SCH (21:52)
[2020-06-13] MEDS: SODIUM CHLOR 0.45% + 20MEQ KCL 20 MEQ/1,000 ML BAG IV SCH (05:57)
[2020-06-13] MEDS: INSULIN ASPART 100 UNITS/ML 3 ML PEN SC SCH ×4 (08:09→21:20)
[2020-06-13] MEDS: ATORVASTATIN 40 MG TAB PO SCH (08:10)
[2020-06-13] MEDS: FLUTICASONE/VILANTEROL 100/25MCG 14 PUFFS/INHALER INH SCH (08:10)
[2020-06-13] MEDS: CETIRIZINE HCL 10 MG TABLET PO SCH (08:11)
[2020-06-13] MEDS: TRIAMCINOLONE ACET NASAL SPRAY 10.8ML BTL SCH (08:11)
[2020-06-13] MEDS: PANTOprazole 40 MG TAB PO SCH (08:11)
[2020-06-13] MEDS: ENOXAPARIN INJ 40 MG/0.4 ML SYR SQ SCH ×2 (08:11→21:21)
[2020-06-13] MEDS: METOPROLOL SUCC 50MG EXT REL TAB PO SCH ×2 (08:24→09:13)
--- NOTE | 2020-06-13 08:32 | Pharmacy Report ---
Pharmacy Glycemic Short Note 2 - Date of Service June 13, 2020 - Glycemic Short BSG Results (Last 24 hours): OUTPATIENT ANTIDIABETIC REGIMEN: * Previously on Segluromet but has not taken medication since March 2020. * A1c = 14.1% (06/12/20) ASSESSMENT: 06/13: * Patient continues on insulin gtt this morning. It is currently running at 1.6 units/hr and most recent BSG was 123 mg/dL. * BSGs trended down nicely yesterday: 302-430-104-745-139-461-137 mg/dL * Received ~ 65 units from the insulin gtt + 80 units of Lantus for a total of 145 units basal * Received 32 units of bolus insulin * Patient likely has some degree of glucose toxicity affecting beta cell function given his extreme insulin resistance. Expect him to become more insulin sensitive as his beta cells recover from this acute toxicity. * I will discontinue the insulin drip and IV fluids this morning and transition patient to a basal-bolus regimen. * Will start patient on 30 units of Lantus BID (0.4 units/kg) as well as Novolog with aggressive CF/CR for now. * Expect insulin requirements to decrease over the next 48 hours. * Lunchtime BSG trended up to 247 mg/dL * Received 18 units of Novolog and gave patient an extra 10 units of Lantus at this time * Had RN check BSG 2 hours after Novolog to ensure he was trending down and it was 234 mg/dL * Will increase basal dose for this evening 06/12: * 59 yo M admitted secondary to polyuria and polydipsia. Pharmacy is consulted for inpatient glycemic management. * Patient was previously on Steglatro 5 mg PO daily + Metformin ER 1500 mg PO daily until August 2019. Then patient was transitioned to the combination of these two medications called Segluromet 7.5-1000 mg PO BIDM in September 2019. Most recent HbA1c prior to this admission was 7.9% in March 2020. At this time, patient reports his insurance stopped covering Segluromet so he has not taken any anti-diabetic medications since March 2020. HbA1c today was almost doubled to 14.1% in only two months. * Admission BSG was > 900 mg/dL. There was no acidosis. These was deemed HHS despite patient being mentally alert and without significant increase in serum osmolality. Patient was given a 5 unit IV insulin bolus followed by continuous insulin infusion started at 5.1 units/hr with a goal range of 250-350 mg/dL. BSGs trended downward overnight and at ~ 0500 this morning, patient's BSG was 294 mg/dL. At this time Dextrose was added to his fluids. Since this time BSGs have trended upwards despite tightening goal range to 150-250. * I am not concerned about decreasing this patient's BSG too fast at this point as he is not obtunded and Serum Osmolality is being monitored and does not demonstrate any significant fluid shifts. * I tightened the insulin drip goal ranged to 150-250 mg/dL this morning. Patient's K+ was 3.6 this AM so I spoke with attending who agree to 2 K- riders. I have switched fluids to 1/2 NS + 20 KCl at 150 mL/hr. Patient will be given 50 units of basal insulin this morning (0.36 units/kg; weight/stress 3 full dose per Adj.BW). Since the patient is ordered a diet, I will start a fixed carbohydrate ratio of 1 unit of insulin for every 5 gm of CHO. I expect patient's BSGs to start trending downward prior to lunch given removal of dextrose from fluids, tighter goal range, and Lantus dose. * Plan is to continue insulin drip for now until both of the following criteria are met: * Insulin drip running at 1 unit/hr or less AND 2 consecutive BSGs are 180 mg/dL or less * Most recent BSG was 246 mg/dL at 1351 and insulin gtt is running at 2.7 units /hr PLAN FOR INPATIENT GLYCEMIC CONTROL: * Basal insulin * Lantus 30 units SQ qAM * Lantus 10 units x 1 this afternoon * Lantus 40-60 units SQ BID based on BSG starting this evening - see eMAR for more details * Bolus insulin * NovoLog per scale ACHS or Q6hrs while NPO * Goal Range: Low 110 mg/dL - High 140 mg/dL * Correction Factor: 12 mg/dL/unit * Nutritional / Prandial insulin per carb ratio of 1 unit per 4 grams CHO consumed PLAN FOR DISCHARGE: * A1c = 14.1% which is up from 7.9% in March 2020. * Patient will require insulin upon discharge. Insulin dose is unknown at this time as insulin drip has just been shut off. Will attempt to determine safe and effective dose over the next 48 hours. * Given patient's renal function, would recommend resuming Metformin upon discharge.
[2020-06-13] MEDS ORDERED: INSULIN GLARGINE SOLOSTAR 100 UNITS/ML 3 ML PEN SC SCH (09:00)
[2020-06-13] MEDS: lisinopriL 40 MG TAB PO SCH (09:13)
[2020-06-13] MEDS: AMLODIPINE BESYLATE 5 MG TAB PO SCH (09:13)
[2020-06-13] MEDS ORDERED: INSULIN GLARGINE SOLOSTAR 100 UNITS/ML 3 ML PEN SC ONE (13:15)
--- NOTE | 2020-06-13 18:25 | Hospitalist Progress Note ---
Date of Service June 13, 2020 Assessment & Plan (1) Hyperosmolar non-ketotic state in patient with type 2 diabetes mellitus: Resolved, off IV insulin drip Admitted with blood sugar more than 900, Nonketotic/ NECK: Supple, nontender, no lymphadenopathy. Anion gap, normal beta hydroxybutyrate Hemoglobin A1c 14.1 Patient started with IV insulin drip, appreciate input from pharmacy environmental educator consulted Positioned to subcu insulin Patient will need to be on insulin on discharge follow-up with diabetic clinic at [facility] (2) Hyperglycemia: Due to poorly controlled type 2 diabetes As discussed above (3) Increased thirst: Due to severe dehydration, hyperglycemia, uncontrolled type 2 diabetes Symptoms has resolved, (4) Dyslipidemia: On statin (5) Morbid obesity: BMI 45, patient given instruction for weight reduction lifestyle modification, dietary change, for diabetic management (6) Obstructive sleep apnea (adult) (pediatric): CPAP at night (7) Acute renal insufficiency: Presented with acute renal failure, elevated creatinine is secondary to dehydration, poorly controlled type 2 diabetes Renal function improved to baseline, DVT prophylaxis, moderate to high risk secondary to morbid obesity, subcu Lovenox ordered Disposition: Expected to be discharged home tomorrow Patient follows with Dr. Garcia Admission and Anticipated Discharge Date Admission Date: June 11, 2020 Subjective Feels like his baseline, no nausea vomiting no headache, No cough no shortness of breath Blood sugar improved, off IV insulin drip Reports of constipation with trace of blood in stool Order for bowel regimen Review of Systems Review of Systems: All systems reviewed & are unremarkable except as noted in HPI & below Physical Exam Constitutional: WD/WN, vitals as above + obese; no acute distress Eyes: PERRL, conjunctivae normal, anicteric sclerae ENMT: external ear and nose normal, oropharynx normal Neck: trachea midline, no thyromegaly Respiratory: no respiratory distress and no cough Auscultation: no crackles, no rales, no rhonchi and no wheezes Cardiovascular: RRR, no murmur, no edema Gastrointestinal (Abdomen): Inspection/Auscultation: + abdomen distended Percussion/Palpation: abdomen soft; abdomen nontender Musculoskeletal: no cyanosis or clubbing, extremities motor strength 5/5 Skin: no rashes, warm and dry Neurologic: PERRL, EOMI, accommodation nl, no face palsy, no dysarthria Psychiatric: A+Ox3, euthymic affect Results & Data Results & Data ([facility]) Vital Signs (Past 12 Hours) Vital Signs Temp Pulse Pulse Pulse Resp BP Pulse Ox 06/13/20 15:15 36.7 C 82 20 139/84 93 06/13/20 12:00 36.7 C 81 18 116/81 93 06/13/20 09:12 87 110/75 06/13/20 08:24 84 94/62 L 06/13/20 07:47 68 06/13/20 07:40 36.7 C 68 18 93/62 L 97
[2020-06-13] MEDS: POLYETHYLENE (MIRALAX) 17 GM PACK PO SCH (21:18)
[2020-06-13] MEDS: INSULIN GLARGINE SOLOSTAR 100 UNITS/ML 3 ML PEN SC SCH (21:18)
[2020-06-13] MEDS: MONTELUKAST SODIUM 10 MG TABLET PO SCH (21:20)
[2020-06-14 06:31] LABS: Hematocrit (blood only) 39.6 % (42-52); Hemoglobin 13.2 g/dL (14.0-18.0)
[2020-06-14 07:05] LABS: BUN Creatinine Ratio 12.4 (10-20); Calcium 8.8 mg/dl (8.5-10.1); Creatinine Clr Calc Pharmacy 105.6 ml/min; Est GFR (African American) 89.9; Est GFR (Non-African American) 77.5; Potassium 3.5 mmol/L (3.5-5.1)
[2020-06-14 07:12] LABS: Phosphorus 3.3 mg/dl (2.5-4.9)
--- NOTE | 2020-06-14 08:05 | Communication Note ---
Date of Service: June 14, 2020 59yo male Dx: hyperglycemia. Pt with hx of type 2 diabetes x 2-3yrs. Pt presented to ED 06/11 with complaints of increasing thirst and urination and d ry mouth. BG 913 in ED. No acidosis. Fluids and IV insulin infusion initiated. HOME DIABETES MEDS: *was taking Steglatro 5 mg daily + Metformin ER 1500 mg daily until August 2019 *was transitioned to a combo of these two meds (Segluromet 7.5mg/Metformin 1000mg BID) in Oct 15; however, pts insurance formulary stopped covering the Segluromet in March. Pt has been without any diabetes medications since April 14 due change in pts insurance formulary no longer covering Segluromet. HEMOGLOBIN A1C: A1c 14.1% (eAG 358) on 06/12, which is up from 7.9% in March pt will be discharged on insulin RECOMMENDATIONS AT DISCHARGE: 1.- Lantus BID + Metformin. 2. Additional diabetes medications, as needed, thru PCP office. 3. blood sugar check 3 times a day , keep log 4. A1c > 9%- pt will need close follow-up at time of discharge. will call to establish care with [facility] diabetic clinic at [facility] pt will be discharged hoem today : following Rx's will be given at time of discharge: 1. Lantus solostar pen /will D.w Pharmacy for the dose 2. Metformin 1000 mg PO BID 3. Insulin pen needles - 4mm x 32G. 4. Contour Next test strips to check 3x/day. 5. Lancets to check 3x/day. Delia Oconnell
[2020-06-14] MEDS: CETIRIZINE HCL 10 MG TABLET PO SCH (08:16)
[2020-06-14] MEDS: PANTOprazole 40 MG TAB PO SCH (08:16)
[2020-06-14] MEDS: ENOXAPARIN INJ 40 MG/0.4 ML SYR SQ SCH (08:16)
[2020-06-14] MEDS: METOPROLOL SUCC 50MG EXT REL TAB PO SCH (08:17)
[2020-06-14] MEDS: AMLODIPINE BESYLATE 5 MG TAB PO SCH (08:17)
[2020-06-14] MEDS: POLYETHYLENE (MIRALAX) 17 GM PACK PO SCH (08:17)
[2020-06-14] MEDS: lisinopriL 40 MG TAB PO SCH (08:17)
[2020-06-14] MEDS: ATORVASTATIN 40 MG TAB PO SCH (08:17)
[2020-06-14] MEDS: TRIAMCINOLONE ACET NASAL SPRAY 10.8ML BTL SCH (08:18)
[2020-06-14] MEDS: FLUTICASONE/VILANTEROL 100/25MCG 14 PUFFS/INHALER INH SCH (08:18)
[2020-06-14] MEDS: INSULIN GLARGINE SOLOSTAR 100 UNITS/ML 3 ML PEN SC SCH (08:19)
[2020-06-14] MEDS: INSULIN ASPART 100 UNITS/ML 3 ML PEN SC SCH ×2 (08:20→12:41)
[2020-06-14] MEDS: INDAPAMIDE 1.25 MG TAB PO SCH (09:39)
--- NOTE | 2020-06-14 09:45 | Pharmacy Report ---
Pharmacy Glycemic Short Note 2 - Date of Service June 14, 2020 - Glycemic Short BSG Results (Last 24 hours): 06/13/20 06/14/20 14:16 05:37 Glucose 116 H POC Glucose 234 H OUTPATIENT ANTIDIABETIC REGIMEN: * Previously on Segluromet but has not taken medication since March 2020. * A1c = 14.1% (06/12/20) ASSESSMENT: 06/14: * Pt has received 115 units of insulin over the past 24hrs * 80 units of basal insulin with Lantus * 35 units of prandial/correctional insulin with NovoLog * BSGs (NOT crossing to EMR- lab and IS aware) since transitioning off of insulin infusion [phone] g/dl * AM fasting BSG in goal range at 127 mg/dl; however this is a significant drop from yesterday - will empirically reduce to prevent LOW tomorrow. Additionally, do not want to drop BSG too quickly as A1c is 14.1%; do not want to induce retinal complications and patient may "feel hypoglycemia" at otherwise normal BSGs * Post-prandial BSGs in range yesterday- will continue same CF/CR parameters; current parameters are consistent with estimated basal insulin needs. 06/13: * Patient continues on insulin gtt this morning. It is currently running at 1.6 units/hr and most recent BSG was 123 mg/dL. * BSGs trended down nicely yesterday: [phone] mg/dL * Received ~ 65 units from the insulin gtt + 80 units of Lantus for a total of 145 units basal * Received 32 units of bolus insulin * Patient likely has some degree of glucose toxicity affecting beta cell function given his extreme insulin resistance. Expect him to become more insulin sensitive as his beta cells recover from this acute toxicity. * I will discontinue the insulin drip and IV fluids this morning and transition patient to a basal-bolus regimen. * Will start patient on 30 units of Lantus BID (0.4 units/kg) as well as Novolog with aggressive CF/CR for now. * Expect insulin requirements to decrease over the next 48 hours. * Lunchtime BSG trended up to 247 mg/dL * Received 18 units of Novolog and gave patient an extra 10 units of Lantus at this time * Had RN check BSG 2 hours after Novolog to ensure he was trending down and it was 234 mg/dL * Will increase basal dose for this evening 06/12: * 59 yo M admitted secondary to polyuria and polydipsia. Pharmacy is consulted for inpatient glycemic management. * Patient was previously on Steglatro 5 mg PO daily + Metformin ER 1500 mg PO daily until August 2019. Then patient was transitioned to the combination of these two medications called Segluromet 7.5-1000 mg PO BIDM in September 2019. Most recent HbA1c prior to this admission was 7.9% in March 2020. At this time, patient reports his insurance stopped covering Segluromet so he has not taken any anti-diabetic medications since March 2020. HbA1c today was almost doubled to 14.1% in only two months. * Admission BSG was > 900 mg/dL. There was no acidosis. These was deemed HHS despite patient being mentally alert and without significant increase in serum osmolality. Patient was given a 5 unit IV insulin bolus followed by continuous insulin infusion started at 5.1 units/hr with a goal range of 250-350 mg/dL. BSGs trended downward overnight and at ~ 0500 this morning, patient's BSG was 294 mg/dL. At this time Dextrose was added to his fluids. Since this time BSGs have trended upwards despite tightening goal range to 150-250. * I am not concerned about decreasing this patient's BSG too fast at this point as he is not obtunded and Serum Osmolality is being monitored and does not demonstrate any significant fluid shifts. * I tightened the insulin drip goal ranged to 150-250 mg/dL this morning. Patient's K+ was 3.6 this AM so I spoke with attending who agree to 2 K- riders. I have switched fluids to 1/2 NS + 20 KCl at 150 mL/hr. Patient will be given 50 units of basal insulin this morning (0.36 units/kg; weight/stress 3 full dose per Adj.BW). Since the patient is ordered a diet, I will start a fixed carbohydrate ratio of 1 unit of insulin for every 5 gm of CHO. I expect patient's BSGs to start trending downward prior to lunch given removal of dextrose from fluids, tighter goal range, and Lantus dose. * Plan is to continue insulin drip for now until both of the following criteria are met: * Insulin drip running at 1 unit/hr or less AND 2 consecutive BSGs are 180 mg/dL or less * Most recent BSG was 246 mg/dL at 1351 and insulin gtt is running at 2.7 units/hr PLAN FOR INPATIENT GLYCEMIC CONTROL: * Basal insulin: empirically decrease dosing * Lantus 30-40 units SQ BID based on BSG * BSG < 160 --> 30 units * BSG 160 or above --> 40 units * Bolus insulin: no change * NovoLog per scale ACHS or Q6hrs while NPO * Goal Range: Low 110 mg/dL - High 140 mg/dL * Correction Factor: 12 mg/dL/unit * Nutritional / Prandial insulin per carb ratio of 1 unit per 4 grams CHO consumed PLAN FOR DISCHARGE: * A1c = 14.1% which is up from 7.9% in March 2020. * Recommend DC Regimen * Lantus 30 units SQ BID * Metformin XR 500mg PO daily with evening meal. May be able to start at higher dose or even BID since patient was previously on metformin. Continue to titrate metformin dosing upwards as recommended. Dosage increases should be made in increments of 500 mg weekly, up to 1,000mg PO BIDM. * SMBG 3x/day- until seen by provider/[facility] clinic
--- NOTE | 2020-06-14 13:12 | Discharge Summary ---
Date of Service June 14, 2020 Admission HPI Per Admitting Provider DICTATED BY: Dariel Villalpando MD DATE OF ADMISSION: 06/11/2020 CHIEF COMPLAINT: Hyperglycemia. HISTORY OF PRESENT ILLNESS: This is a 59-year-old male with past medical history significant for asthma, mild persistent mixed rhinitis, obstructive sleep apnea, nocturnal hypoxemia, hypertension, gastritis and gastroduodenitis, obesity, migraine variant, family history of premature CAD, recent dobutamine stress echo in March was negative study, hyperlipidemia, history of type 2 diabetes. As per Epic, he was started on semaglutide, but the patient says he did not started on any medications yet, comes here because of last several days he is having increased frequency of urination and also is very thirsty. He is drinking a lot of water, ice tea, but says still feeling thirsty. Denies any weakness. No nausea, no vomiting, no abdominal pain. Denies any dizziness, but complains of blurred visions and in last 3 days, he did not have much taste and didn't eat much. No loss of sense of smell. No co ugh, no fever, no chills. No exposure to any COVID patients. Denies any earache, no runny nose. He has headache earlier that is resolved now. He says he is always short of breath because of his asthma, it is more when walking up hills. No diarrhea or constipation. No blood in the stool or black stools. No hematuria. No swelling, no rash. Currently resting comfortably and hemodynamically stable. Principal Diagnosis TYPE 2 diabetes, poorly controlled hemoglobin A1c 14(estimated average daily blood sugar 350) Acute renal failure due to dehydrationresolved Discharge Exam Constitutional WD/WN, vitals as above + obese; no acute distress Eyes PERRL, conjunctivae normal, anicteric sclerae ENMT external ear and nose normal, oropharynx normal Neck trachea midline, no thyromegaly Respiratory no respiratory distress and no cough Auscultation: no crackles, no rales, no rhonchi and no wheezes Cardiovascular RRR, no murmur, no edema Gastrointestinal (Abdomen) Inspection/Auscultation: + abdomen distended Percussion/Palpation: abdomen soft; abdomen nontender Musculoskeletal no cyanosis or clubbing, extremities motor strength 5/5 Skin no rashes, warm and dry Neurologic PERRL, EOMI, accommodation nl, no face palsy, no dysarthria Psychiatric A+Ox3, euthymic affect Discharge Data Allergies Allergy/AdvReac Type Severity Reaction Status Date / Time Tetracyclines Allergy Intermediate RASH/HIVES Verified 06/11/20 21:01 Consultations 06/11/20 20:52 ED Decision to Admit Stat 06/11/20 23:34 Consult Case Management - Discharge Planning Routine Diabetes Follow up Diabetes Follow-up Needed for HgbA1c >9% Hospital Course (1) Hyperosmolar non-ketotic state in patient with type 2 diabetes mellitus: Date of Service: June 14, 2020 Pt with hx of type 2 diabetes x 2-3yrs. Pt presented to ED 06/11 with complaints of increasing thirst and urination and dry mouth. BG 913 in ED. No acidosis. Fluids and IV insulin infusion initiated. A1c 14.1% (eAG 358) on 06/12, which is up from 7.9% in March Patient transitioned to subcu insulin, appreciate input from pharmacy for glycemic management A.m./fasting BSG 127 Patient is discharged on insulin Lantus: 30 units SQ BID Metformin XR 1000 PO daily with evening meal. Continue to titrate metformin dosing upwards as recommended. Dosage increases should be made in increments of 500 mg weekly, up to 1,000mg PO BIDM. Follow-up with family physician at [facility] diabetic clinic Counseling provided for yearly eye checkup, examination of feet with his doctors visit, Avoid walking barefoot, (2) Hyperglycemia: Due to poorly controlled type 2 diabetes As discussed above (3) Increased thirst: Due to severe dehydration, hyperglycemia, uncontrolled type 2 diabetes Symptoms has resolved, (4) Dyslipidemia: On statin (5) Morbid obesity: BMI 45, patient given instruction for weight reduction lifestyle modification, dietary change, for diabetic management (6) Obstructive sleep apnea (adult) (pediatric): CPAP at night (7) Acute renal insufficiency: Presented with acute renal failure, elevated creatinine is secondary to dehydration, poorly controlled type 2 diabetes Renal function improved to baseline, DVT prophylaxis, moderate to high risk secondary to morbid obesity, subcu Lovenox ordered Disposition: Patient is discharged home today with insulin regimen Total Time Total Time Spent Total Time Spent (In Minutes): 35 mins Total Time Includes: Examination of the Patient, Discharge Planning, Medication Reconciliation and Communication With Other Providers Discharge Plan Discharge Items Patient Disposition: Home - Self-Care Reason For Visit: HYPERGLYCEMIA Discharge Diagnosis: TYPE 2 diabetes, poorly controlled hemoglobin A1c 14(estimated average daily blood sugar 350) Acute renal failure due to dehydrationresolved Activity: Resume your previous activity Non-emergency contact: Primary Care Provider Call non-emergency contact if: you have any medication questions Follow-up/Referrals: Leonel Garcia MD [Primary Care Provider] - (Hospital follow-up in a week, office will call with appointment Need to follow-up with diabetic/[facility] clinic at [facility] ) Diet: Carb Consistent or DM2 and Heart Healthy Addtl Attending Provider Instructions: It is very important to have good control of your blood sugar to prevent future heart attack, stroke, kidney failure, loss of vision You were discharged on insulin Lantus long-acting Lantus 30 units subcutaneous in the morning before breakfast/in the evening before dinner Metformin XR 1000mg by mouth daily with evening meal Follow-up with diabetic clinic, metformin dose may need to be increased if blood sugar remains uncontrolled Metformin dosage increases should be made in increments of 500 mg weekly, up to 1,000mg by mouth twice daily Please check your blood sugar 3 times daily, Before breakfast/fasting Before lunch Before dinner These keep a log of all blood sugar readings in bring it to your next physician visit/diabetic clinic visit Pending Studies at Discharge: No Stand-Alone Forms: My [facility] [employer], Smoking Cessation Medications and DC Order Prescriptions: New Lantus Solostar U-100 Insulin 100 unit/mL (3 mL) insulin pen 30 unit subcut BID Qty: 15 RF: 3 metformin 1,000 mg tablet extended release 24hr 1,000 mg PO DAILY Qty: 30 RF: 3 (DME) insulin admin supplies Insulin Pen See Rx Instructions .ROUTE .MEDSUPPLY Qty: 1 RF: 3 (DME) Contour Next Test Strips Strip See Rx Instructions .ROUTE .MEDSUPPLY Qty: 100 RF: 0 Continued ipratropium bromide 0.02 % solution 1.25 ml INH .COMPLEX Qty: 150 RF: 3 levalbuterol HCl 0.63 mg/3 mL solution for nebulization 0.63 mg INH .COMPLEX Qty: 150 RF: 3 albuterol sulfate [Ventolin HFA] 90 mcg/actuation HFA aerosol inhaler 2 puffs INH Q6H PRN (Reason: shortness of breath or wheezing) Qty: 18 RF: 4 amlodipine 5 mg tablet 5 mg PO DAILY RF: 0 atorvastatin 40 mg tablet 40 mg PO DAILY RF: 0 cetirizine 10 mg tablet 10 mg PO DAILY RF: 0 lisinopril 40 mg tablet 40 mg PO DAILY RF: 0 omega-3 fatty acids 1,000 mg capsule 1,000 mg PO DAILY RF: 0 omeprazole 40 mg capsule,delayed release(DR/EC) 40 mg PO DAILY RF: 0 montelukast [Singulair] 10 mg tablet 10 mg PO QPM RF: 0 triamcinolone acetonide [Nasacort] 55 mcg aerosol,spray 1 sprays INTNAS DAILY RF: 0 metoprolol succinate 100 mg tablet extended release 24 hr 50 mg PO DAILY RF: 0 Symbicort 160-4.5 mcg/actuation HFA aerosol inhaler 2 inh INH BID Qty: 10.2 RF: 0 indapamide 2.5 mg tablet 2.5 mg PO DAILY RF: 0 Discharge Orders: Discharge Order (Routine); Ordered 06/14/20 Ordered By: Delia Oconnell Admission Data Admit Date/Time: 06/11/20 21:23 Attending Provider: Delia Oconnell Admit Provider: Dariel Villalpando Primary Care Provider: Lenoel Garcia Other Providers: Dariel Villalpando Other Interventions: Discharge Summary Assessment (RN) Last Done: 06/14/20 13:08
== END 2020-06-14 13:48 | disposition home or self-care (01) ==
LOC: ED 19:11 → INTOOBSV 21:23 → 2N 21:23